=== PATIENT | female | born 1950 | race Caucasian/White ===

== ENCOUNTER 2017-09-03 11:41 | Emergency (ER) | payer OTHER, MEDICARE ==
[~2017-09-03] VITALS: Ht 170.2 cm; Wt 61.2 kg
--- NOTE | 2017-09-03 11:46 | ED GENERAL ADULT ---
History of Present Illness General Chief Complaint: Abdominal Pain/Flank Pain Stated Complaint: BIBA FOR ABD PAIN Source: patient, family Exam Limitations: no limitations Vital Signs & Intake/Output Vital Signs & Intake/Output Vital Signs Date Time Temp Pulse Resp B/P B/P Pulse O2 O2 Flow FiO2 Mean Ox Delivery Rate 09/03 1423 71 16 186/83 98 Room Air 09/03 1150 97 Room Air Room Air 09/03 1145 96.2 113 20 226/124 100 Room Air Allergies Coded Allergies: hydrocodone (From VICODIN) (Intermediate, NAUSEA 09/03/17) meperidine (From DEMEROL) (Intermediate, NAUSEA 09/03/17) Reconcile Medications Estrogenic Subst Conj (Premarin) 0.625 MG TABLET 1 TAB PO DAILY HORMONE ( Reported) Ibuprofen 400 MG TABLET 1 TAB PO Q12 PRN PAIN Ondansetron HCl (Zofran) 4 MG TABLET 1 TAB PO Q6-8P NAUSEA Tamsulosin HCl (Flomax) 0.4 MG CAP.ER.24H 1 CAP PO DAILY PRN KIDNEY STONE Triage Nurses Notes Reviewed? yes Onset: Abrupt Duration: week(s): Timing: recent history HPI: 09/03/17 67-year-old female presents to the emergency department with a sudden onset of severe left sided flank pain. The patient states that she was in her usual state of health until early this morning when she developed severe left sided low back pain that radiated into her left lower quadrant across her abdomen. She admits to nausea. No fever. Past History Travel History Traveled to [place] past 21 day No Medical History Any Pertinent Medical History? see below for history Surgical History Surgical History: non-contributory Family History Hx Contributory? No Review of Systems Review of Systems Constitutional: Denies: fever. EENTM: Denies: visual changes. Respiratory: Reports: no symptoms. Cardiovascular: Reports: no symptoms. GI: Reports: abdominal pain. Genitourinary: Reports: no symptoms. Musculoskeletal: Reports: no symptoms. Skin: Denies: rash. Neurological/Psychological: Reports: no symptoms. Hematologic/Endocrine: Reports: no symptoms. Immunologic/Allergic: Reports: no symptoms. Physical Exam Physical Exam General Appearance: well developed/nourished, alert, anxious, mild distress Head: atraumatic, normal appearance Eyes: Bilateral: normal appearance, PERRL, EOMI. Ears, Nose, Throat: normal pharynx, normal ENT inspection Neck: normal inspection, supple Respiratory: normal breath sounds, chest non-tender, no respiratory distress Cardiovascular: regular rate/rhythm Peripheral Pulses: 4+ radial (R), 4+ radial (L) Gastrointestinal: soft, non-tender Back: CVA tenderness (L) Extremities: normal inspection Neurologic/Psych: no motor/sensory deficits, awake, alert, oriented x 3 Skin: intact, normal color, warm/dry Core Measures ACS in differential dx? No CVA/TIA Diagnosis: No Sepsis Present: No Sepsis Focused Exam Completed? No Progress Differential Diagnoses I considered the following diagnoses in my evaluation of the patient: [Aortic aneurysm, diverticulitis, appendicitis, ureterolithiasis] Plan of Care: Orders Procedure Date/time Status CULTURE,URINE 09/03 1154 Active URINALYSIS 09/03 1154 Complete COMPREHENSIVE METABOLIC PANEL 09/03 1154 Complete CBC WITHOUT DIFFERENTIAL 09/03 1154 Complete Laboratory Tests 09/03/17 1343: Urine Color YEL, Urine Clarity CLEAR, Urine pH 6.5, Ur Specific [place] 1.010, Urine Protein NEG, Urine Ketones TRACE H, Urine Nitrite NEG, Urine Bilirubin NEG, Urine Urobilinogen 0.2, Ur Leukocyte Esterase NEG, Ur Microscopic SEDIMENT EXAMINED, Urine RBC 1-3, Urine Hemoglobin TRACE-INTACT, Urine Glucose NEG 09/03/17 1220: Anion Gap 12, Estimated GFR > 60, BUN/Creatinine Ratio 28.8 H, Glucose 111 H, Calcium 8.6, Total Bilirubin 0.5, AST 28, ALT 35, Alkaline Phosphatase 80, Total Protein 6.7, Albumin 4.0, Globulin 2.7, Albumin/Globulin Ratio 1.5, CBC w Diff MAN DIFF ORDERED, RBC 4.38, MCV 93.2, MCH 30.9, MCHC 33.2, RDW 13.2, MPV 7.4, Gran % 86.4 H, Lymphocytes % 10.8 L, Monocytes % 2.0, Eosinophils % 0.6, Basophils % 0.2, Absolute Granulocytes 6.9 H, Absolute Lymphocytes 0.9 L, Absolute Monocytes 0.2, Absolute Eosinophils 0, Absolute Basophils 0, Platelet Estimate VERIFIED BY SMEAR, Normocytic RBCs VERIFIED, Normochromic RBCs VERIFIED Microbiology 09/03 1343 URINE ROUT: Urine Culture - RECD Initial ED EKG: none Departure Departure Disposition: HOME OR SELF CARE Condition: Stable Clinical Impression Primary Impression: Kidney stone Departure Forms: Customer Survey General Discharge Information Prescriptions: Current Visit Scripts Ondansetron HCl (Zofran) 1 TAB PO Q6-8P #5 TAB Tamsulosin HCl (Flomax) 1 CAP PO DAILY PRN KIDNEY STONE #6 CAP Ibuprofen 1 TAB PO Q12 PRN PAIN #8 TAB Comments 09/03/17 3:41 PM The patient's symptoms completely resolved. CT scan shows a left 0.3 cm kidney stone. Patient is being discharged to follow-up with urology. PATIENT: SYLWIA SY PRESENT AGE: 67 PATIENT ACCOUNT NO: [id number] : 50 LOCATION: [facility] ORDERING PHYSICIAN: Herbie Hutson DO SERVICE DATE: 09/03/17 EXAM TYPE: CAT - CT ABD & PELVIS W IV CONTRAST EXAMINATION: CT ABDOMEN AND PELVIS WITH CONTRAST CLINICAL INFORMATION: Severe right flank pain. Evaluate for ureterolithiasis. COMPARISON: None TECHNIQUE: Multidetector volumetric imaging was performed of the abdomen and pelvis following IV administration of 95 mL of Optiray 320 intravenous contrast. Sagittal and coronal reformatted images were obtained on the technologist's workstation. DLP: 252 mGy-cm FINDINGS: LUNG BASES: Unremarkable. LIVER, GALLBLADDER, AND BILIARY TREE: Liver has normal size and contour. Small, 0.5 cm cyst within hepatic segment IVb. There is hypoattenuation around portal veins within the central portion of the liver; this suggests possibility of mild periportal edema. Gallbladder is unremarkable and there is no evidence of intrahepatic or extrahepatic bile duct dilatation. PANCREAS: The pancreas enhances homogeneously. No focal pancreatic lesion, pancreatic calcifications or pancreatic ductal dilatation. A small amount of fluid extends along the posterior surface of the pancreatic body and tail along the anterior renal fascia; this could be secondary to forniceal rupture of the adjacent, obstructed left urinary tract. SPLEEN: Unremarkable. ADRENAL GLANDS: Unremarkable. KIDNEYS AND URETERS: The kidneys are normal in size and enhance symmetrically. There is a 0.3 x 0.5 cm calyceal stone in the anterior aspect of the lower pole of the left kidney. Also, a punctate calyceal stone is present within the posterior aspect of the left lower pole. Mild left hydronephrosis and perinephric edema are caused by a 0.3 cm calculus of the ureterovesical junction. BLADDER: The bladder is underdistended. No focal bladder wall thickening is identified. GASTROINTESTINAL TRACT: Stomach is unremarkable. Loops of bowel are normal in caliber. The appendix is not definitively identified; however, there are no inflammatory changes within the right lower quadrant. No evidence of acute inflammation or obstruction along the gastrointestinal tract. No pneumoperitoneum. ABDOMINAL WALL: Unremarkable. LYMPH NODES: Normal. VASCULAR: Mild atherosclerosis of the abdominal aorta without aneurysm. PELVIC VISCERA: No pelvic mass or pelvic free fluid. 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 At L4-L5 and L5-S1, there is loss of disc height, vacuum disc phenomenon and traction osteophyte formation. No aggressive osseous lesions. IMPRESSION: Left nephrolithiasis, mild left hydronephrosis and perinephric edema caused by a 0.3 cm calculus of the ureterovesical junction. The fluid/edema along the left anterior renal fascia posterior to the pancreatic body and tail is likely related to the obstructed left urinary tract. No evidence of edema within the pancreatic parenchyma; no overt pancreatitis. There appears to be minimal periportal edema within the liver. DICTATED BY: Odin Chu MD DATE/TIME DICTATED:09/03/171437 LEGAL MEDIATOR:HERBERT DATE/TIME TRANSCRIBED:09/03/171437 CONFIDENTIAL, DO NOT COPY WITHOUT APPROPRIATE AUTHORIZATION. <Electronically signed in Other Vendor System> SIGNED BY: Odin Chu MD 09/03/17 1456 Critical Care Note Critical Care Note Critical Care Time: non-applicable
[2017-09-03 12:35] LABS: ABSOLUTE BASOPHIL COUNT 0 /CUMM (0.0-0.2); ABSOLUTE EOSINOPHIL COUNT 0 /CUMM (0.0-0.7); ABSOLUTE GRANULOCYTE CT 6.9 /CUMM (1.4-6.5); ABSOLUTE LYMPH COUNT 0.9 /CUMM (1.2-3.4); ABSOLUTE MONOCYTE COUNT 0.2 /CUMM (0.10-0.60); BASOPHIL % 0.2 % (0.0-2.0); EOSINOPHIL % 0.6 % (0-5); GRANULOCYTE % 86.4 % (42.2-75.2); HEMATOCRIT 40.8 % (37-47); MEAN CORPUSCULAR HGB 30.9 PG (27.0-31.0); MEAN CORPUSCULAR HGB CONC 33.2 G/DL (33.0-37.0); MEAN CORPUSCULAR VOLUME 93.2 FL (81.0-99.0); MEAN PLATELET VOLUME 7.4 FL (7.4-10.4); PLATELET COUNT 211 /CUMM (130-400); RBC DISTRIBUTION WIDTH 13.2 % (11.5-14.5); RED BLOOD CELL CT 4.38 /CUMM (4.20-5.40)
[2017-09-03] MEDS ORDERED: PREMARIN0.625 M1 PO (12:39)
[2017-09-03 14:23] VITALS: BP 186/83
--- NOTE | 2017-09-03 14:56 | CT SCAN REPORT ---
EXAMINATION: CT ABDOMEN AND PELVIS WITH CONTRAST CLINICAL INFORMATION: Severe right flank pain. Evaluate for ureterolithiasis. COMPARISON: None TECHNIQUE: Multidetector volumetric imaging was performed of the abdomen and pelvis following IV administration of 95 mL of Optiray 320 intravenous contrast. Sagittal and coronal reformatted images were obtained on the technologist's workstation. DLP: 252 mGy-cm FINDINGS: LUNG BASES: Unremarkable. LIVER, GALLBLADDER, AND BILIARY TREE: Liver has normal size and contour. Small, 0.5 cm cyst within hepatic segment IVb. There is hypoattenuation around portal veins within the central portion of the liver; this suggests possibility of mild periportal edema. Gallbladder is unremarkable and there is no evidence of intrahepatic or extrahepatic bile duct dilatation. PANCREAS: The pancreas enhances homogeneously. No focal pancreatic lesion, pancreatic calcifications or pancreatic ductal dilatation. A small amount of fluid extends along the posterior surface of the pancreatic body and tail along the anterior renal fascia; this could be secondary to forniceal rupture of the adjacent, obstructed left urinary tract. SPLEEN: Unremarkable. ADRENAL GLANDS: Unremarkable. KIDNEYS AND URETERS: The kidneys are normal in size and enhance symmetrically. There is a 0.3 x 0.5 cm calyceal stone in the anterior aspect of the lower pole of the left kidney. Also, a punctate calyceal stone is present within the posterior aspect of the left lower pole. Mild left hydronephrosis and perinephric edema are caused by a 0.3 cm calculus of the ureterovesical junction. BLADDER: The bladder is underdistended. No focal bladder wall thickening is identified. GASTROINTESTINAL TRACT: Stomach is unremarkable. Loops of bowel are normal in caliber. The appendix is not definitively identified; however, there are no inflammatory changes within the right lower quadrant. No evidence of acute inflammation or obstruction along the gastrointestinal tract. No pneumoperitoneum. ABDOMINAL WALL: Unremarkable. LYMPH NODES: Normal. VASCULAR: Mild atherosclerosis of the abdominal aorta without aneurysm. PELVIC VISCERA: No pelvic mass or pelvic free fluid. 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 At L4-L5 and L5-S1, there is loss of disc height, vacuum disc phenomenon and traction osteophyte formation. No aggressive osseous lesions. IMPRESSION: Left nephrolithiasis, mild left hydronephrosis and perinephric edema caused by a 0.3 cm calculus of the ureterovesical junction. The fluid/edema along the left anterior renal fascia posterior to the pancreatic body and tail is likely related to the obstructed left urinary tract. No evidence of edema within the pancreatic parenchyma; no overt pancreatitis. There appears to be minimal periportal edema within the liver.
[2017-09-03] MEDS ORDERED: FLOMAX0.4 M1 PO (15:46)
[2017-09-03] MEDS ORDERED: ZOFRAN4 M2 PO (15:46)
[2017-09-03] MEDS ORDERED: IBUPROFEN400 M1 PO (15:46)
== END 2017-09-03 15:56 ==
LOC: ERH 11:41
PROVIDERS: Emergency Medicine
DX: N20.0 Calculus of kidney (principal)
CPT/HCPCS: 74177; 81001; 87086; 96361; 96374; 96375; J1885; J2405